=== PATIENT | female | born 1970 | race Caucasian/White ===

== ENCOUNTER → 2016-11-13 | Outpatient (CLI) | payer OTHER | END | disposition home or self-care (01) | LOC: GMA 16:54 | PROVIDERS: ATTEND Physician Assistant | DX: R50.9 Fever, unspecified (principal) ==

== ENCOUNTER 2016-12-22 13:53 | Emergency (ER) | payer OTHER ==
[2016-12-22 14:33] VITALS: TEMP 98.7; O2SAT 97
[2016-12-22] MEDS ORDERED: diltiaZEM HCL CD 180 MG CAP PO ONE (14:37)
--- NOTE | 2016-12-22 15:37 | ED.PDOC ---
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 She has had this before and has cardioverted well with Cardizem in the past. she is not having chest pain but does feel short of breath and dizzy at times with it. She can feel it when it starts and stops. She does have multiple episodes of this with some frequency but they usually do not last this long. Timing/Duration: 4-6 hours Severity: moderate Improving Factors: nothing Worsening Factors: nothing Associated Symptoms: denies symptoms Allergies/Adverse Reactions: Allergies Acetaminophen [From Darvocet-N] Allergy (Verified 01/23/14 05:15) Propoxyphene [From Darvocet-N] Allergy (Verified 01/23/14 05:15) Review of Systems - Review of Systems Constitutional: States: malaise, weakness EENTM: States: no symptoms reported Respiratory: States: no symptoms reported Cardiology: States: palpitations Gastrointestinal/Abdominal: States: no symptoms reported Genitourinary: States: no symptoms reported Musculoskeletal: States: no symptoms reported Skin: States: no symptoms reported Neurological: States: other - izziness Endocrine: States: no symptoms reported All other Systems: No Change from Baseline Past Medical History (General) - Patient Medical History Hx Seizures: No Hx Asthma: No Hx Cardiac Disorders: Yes - svt, cardiac ablation Hx Congestive Heart Failure: No Hx Thyroid Disease: Yes Hx Diabetes: No Hx Gastroesophageal Reflux: Yes Surgical History: other - Vaccination History Hx Tetanus, Diphtheria Vaccination: Yes Hx Influenza Vaccination: Yes Hx Pneumococcal Vaccination: Yes - Social History Hx Alcohol Use: Yes - Female History Patient : No Family Medical History - Family History Mother Living Status: Still Living Hx Family Hypertension: Yes Hx Cardiac Disease: Yes Hx Family Diabetes: Yes Physical Exam - Physical Exam General Appearance: Alert, Comfortable, No apparent distress Eye Exam: bilateral normal Ears, Nose, Throat: hearing grossly normal Neck: full range of motion Respiratory: no respiratory distress, no accessory muscle use Cardiovascular/Chest: no edema Peripheral Pulses: dorsalis pedis,right: 2+, dorsalis pedis,left: 2+ Rectal Exam: deferred Extremity: no pedal edema, normal capillary refill 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 The patient was given 10 mg of IV Cardizem after which she did cardiovert back to normal sinus rhythm. The patient was on monitoring for this. She was additionally given 180 mg of Cardizem CD approximately 30 minutes later. Patient's blood pressure and pulse are adequate at this time. She remains in normal sinus rhythm. She should keep well hydrated. Lab work looks reassuring. ER warnings are given for any worsening. - Results/Orders Results/Orders: Laboratory Tests 12/22/16 12/22/16 14:14 14:14 WBC 8.5 RBC 4.52 Hgb 13.8 Hct 41.2 MCV 91.0 MCH 30.6 MCHC 33.6 RDW 12.9 Plt Count 284 MPV 7.7 Absolute Neuts (auto) 5.10 Absolute Lymphs (auto) 2.60 Absolute Monos (auto) 0.50 Absolute Eos (auto) 0.30 Absolute Basos (auto) 0.10 Neutrophils % 59.7 Lymphocytes % 30.2 Monocytes % 6.3 Eosinophils % 3.1 Basophils % 0.7 Sodium 138 Potassium 3.6 Chloride 104 Carbon Dioxide 27 Anion Gap 10.6 L BUN 13 Creatinine 0.79 BUN/Creatinine Ratio 16.5 Random Glucose 84 Serum Osmolality 275.0 Calcium 9.4 Total Bilirubin 0.2 AST 18 ALT 19 Alkaline Phosphatase 58 Serum Total Protein 7.9 Albumin 4.2 Globulin 3.7 H Albumin/Globulin Ratio 1.1 TSH 3.35 EKG shows SVT at a rate of 164 bpm. Mild T-wave inversion in lead [address] segment changes otherwise worrisome for ischemia. No chest pain. Departure - Departure Clinical Impression: Sustained SVT Disposition: Discharge to Home or Self Care Condition: Fair Departure Forms: ED Discharge - Pt. Copy, Patient Portal Self Enrollment Instructions: Paroxysmal Supraventricular Tachycardia Diet: regular diet Activity: increase activity as tolerated Referrals: Stefan Mueller III, MD [Primary Care Provider] - 1-2 Weeks Additional Instructions: the patient's 46-year-old female presenting to the emergency room secondary to an episode of prolonged SVT that is symptomatic for her. The patient was given 10 mg of IV Cardizem after which she did cardiovert back to normal sinus rhythm. The patient was on monitoring for this. She was additionally given 180 mg of Cardizem CD approximately 30 minutes later. Patient's blood pressure and pulse are adequate at this time. She remains in normal sinus rhythm. She should keep well hydrated. Lab work looks reassuring. ER warnings are given for any worsening.
[2016-12-22 16:54] VITALS: BP 100/64
== END 2016-12-22 15:45 | disposition home or self-care (01) ==
LOC: ER 13:53
DX: I47.1 Supraventricular tachycardia (principal); E07.9 Disorder of thyroid, unspecified; K21.9 Gastro-esophageal reflux disease without esophagitis; Z88.8 Allergy status to other drugs, medicaments and biological substances

== ENCOUNTER → 2018-11-19 | Outpatient (CLI) | payer OTHER ==
--- NOTE | 2018-11-19 20:53 | MRI ---
EXAM DESCRIPTION: Cervical Spine: MRI. CLINICAL HISTORY: 48 years Female CERVICALGIA COMPARISON: Cervical TECHNIQUE: Multiplanar, high-field MRI, multiple sequences, non-contrast Cervical spine. FINDINGS: C3-C4: Trace posterior bulge with disc desiccated. Bilateral mild uncinate spurs. Facet joints are negative. Canal and neural foramina are patent. C5-C6 disc desiccation and minimal disc space loss. Mild disc bulge to the left of midline. Facets are negative. Canal and neural foramina are patent. C6-C7: Disc desiccation and minimal disc space loss. Mild anterior bulging. Posterior midline bulge abutting the cord. Bilateral uncinate spurs. Mild to moderate right neural foraminal narrowing and mild left neural foraminal narrowing. Mild to moderate canal narrowing. T7 T1: Normal signal in the disc. Tiny posterior midline bulge not touching the cord. Facets are negative. Bilateral neural foramina and canal are patent. Normal signal in the remaining discs with no bulging. Disc spaces preserved. Canal and neural foramina are patent. Facet joints are negative Spinal alignment unremarkable.. No cord compression or cord edema. Atlantoaxial joint negative. Base of the cerebellar tonsils is at the level of the foramen magnum. Paravertebral soft tissues are unremarkable. Vertebral bodies are not compressed at any level. Normal marrow signal in the remaining vertebral bodies and the posterior elements. IMPRESSION: 1. Minimal disc desiccation at C5-C6 and C6-C7. Mild C5-C6 disc bulge into the left of midline. Posterior midline C6-C7 disc bulge abutting the cord. Mild to moderate right neural foraminal narrowing and mild to moderate canal narrowing. 2. No cord compression or cord edema. No vertebral body compression or marrow edema. Electronically signed by: Isidoro Schroeder MD 11/19/2018 8:52 PM CDT
--- NOTE | 2018-11-20 21:26 | MAM ---
EXAM DESCRIPTION: 3D Screening BILATERAL : Digital Mammography. CLINICAL HISTORY: 48 years Female ANNUAL SCREENING . No complaints. No personal history of breast cancer. Mother with breast cancer. Menarche age 11. Childbirth. Postmenopausal. Previous use of HRT. Lifetime risk of developing breast cancer (Tyrer-Cuzick model)(%): 16.7. COMPARISON: Baseline study at this facility. Mammograms from outside facility not yet available. TECHNIQUE: Bilateral CC and MLO projection full-field images, digital tomosynthesis mammographic technique. Bilateral digital 2-D full-field MLO images. CAD not available for tomosynthesis or 2-D images. FINDINGS: The breast parenchymal density pattern is: Heterogeneously dense breast tissue, which may obscure small masses. No skin thickening or nipple retraction. Bilateral solitary microcalcifications. Architectural distortion in the posterior third of the lateral left breast approximately 3:00 position. Accessory breast tissue in the bilateral axilla. No new focal, stellate mass or density, focal asymmetry , and no suspicious microcalcifications right breast. IMPRESSION: BI-RADS CATEGORY: 0 - INCOMPLETE- Need prior mammograms for comparison. FOLLOW-UP: Comparison with prior examination(s) when available. Written communication explaining the results and follow-up will be mailed to the patient and referring care provider. Electronically signed by: Isidoro Schroeder MD 11/20/2018 9:24 PM CDT
== END ==
LOC: MRI 10:19
PROVIDERS: ATTEND Family Medicine
DX: Z12.31 Encounter for screening mammogram for malignant neoplasm of breast (principal); M50.322 Other cervical disc degeneration at C5-C6 level; M50.323 Other cervical disc degeneration at C6-C7 level